=== PATIENT | female | born 1965 | race Caucasian/White ===

== ENCOUNTER 2017-08-18 23:51 | Emergency (ER) | payer OTHER ==
[~2017-08-18] VITALS: Ht 162.6 cm; Wt 99.4 kg
[~2017-08-18 23:51] MED LIST: ALBUAER3 INH; HYDR25TA5 PO; METO100T PO; OMEP20TA93 PO; PRED50 PO; PROM25TA5 PO; PROZ20CA11 PO
[2017-08-19] VITALS (7 sets, daily range): BP systolic 143–214; BP diastolic 78–126; PULSE 58–70; RESP 12–20; TEMP 97.1; O2SAT 98–99
--- NOTE | 2017-08-19 01:24 | PD ---
HPI Chief Complaint: Hypertension Time Seen by Provider: 01:22 Travel History International Travel<30 days: No Contact w/Intl Traveler<30days: No Traveled to known affect area: No History of Present Illness HPI The patient is a 52-year-old female that states her blood pressure is been elevated all day. She took a 0.1 mg of clonidine and this did not help. She has been taking her regular medications correctly which includes metoprolol 100 mg by mouth twice daily. She does have a headache of gradual onset all day and states her organs feel painful. She states her liver and kidneys feel painful when she gets an elevated blood pressure. Her medical problems include COPD, hypertension and anxiety. PFSH Past Medical History Anxiety: Yes Depression: Yes COPD: Yes Diminished Hearing: No GERD: Yes Hypertension: Yes Respiratory: Yes (COPD) Tetanus Vaccination: Unknown Influenza Vaccination: No ?: Not : 4 Para: 3 Miscarriage: 1 Past Surgical History Abdominal Surgery: Yes (LAPAROSOPY X3 ) Hysterectomy: Yes Other Surgery: Yes (CYST REMOVAL LEFT CHEEK) Social History Alcohol Use: No Tobacco Use: No (QUIT 2009) Substance Use: No Allergies-Medications (Allergen,Severity, Reaction): Coded Allergies: No Known Allergies (Unverified , 02/05/16) Reported Meds & Prescriptions Reported Meds & Active Scripts Active Phenergan (Promethazine HCl) 25 Mg Tab 25 Mg PO Q6H PRN Hydrochlorothiazide 25 Mg Tab 25 Mg PO DAILY Metoprolol Tartrate 100 Mg Tab 100 Mg PO BID Proair Hfa 8.5 GM Inh (Albuterol Sulfate) 90 Mcg/Act Aer 2 Puff INH Q4-6H PRN 108 mcg/actuation Prednisone 50 Mg Tab 50 Mg PO BID PRN Reported Omeprazole 20 Mg Tab 20 Mg PO DAILY Metoprolol Tartrate 100 Mg Tab 100 Mg PO BID Hydrochlorothiazide 25 Mg Tab 25 Mg PO DAILY Prozac (Fluoxetine HCl) 20 Mg Cap 20 Mg PO DAILY Review of Systems Except as stated in HPI: all other systems reviewed are Neg Physical Exam Narrative GENERAL: The patient is alert, oriented 3 in no apparent distress except for headache and anxiety. SKIN: Focused skin assessment warm/dry. HEAD: Atraumatic. Normocephalic. EYES: Pupils equal and round. No scleral icterus. No injection or drainage. ENT: No nasal bleeding or discharge. Mucous membranes pink and moist. NECK: Trachea midline. No JVD. CARDIOVASCULAR: Regular rate and rhythm. No murmur appreciated. RESPIRATORY: No accessory muscle use. Clear to auscultation. Breath sounds equal bilaterally. GASTROINTESTINAL: Abdomen soft, non-tender, nondistended. Hepatic and splenic margins not palpable. MUSCULOSKELETAL: No obvious deformities. No clubbing. No cyanosis. No edema. NEUROLOGICAL: Awake and alert. No obvious cranial nerve deficits. Motor grossly within normal limits. Normal speech. PSYCHIATRIC: Appropriate mood and affect; insight and judgment normal. Data Data Last Documented VS Vital Signs Date Time Temp Pulse Resp B/P (MAP) Pulse Ox O2 Delivery O2 Flow Rate FiO2 08/19/17 02:52 64 20 154/86 (108) 08/19/17 00:42 98 Room Air 08/19/17 00:06 97.1 Orders Orders Hydralazine Inj (Apresoline Inj) (08/19/17 01:30) Lorazepam Inj (Ativan Inj) (08/19/17 01:30) MDM Medical Decision Making Medical Screen Exam Complete: Yes Emergency Medical Condition: Yes Medical Record Reviewed: Yes Differential Diagnosis Hypertension poor control, anxiety related hypertension, noncompliance to medications, hypertensive urgency Narrative Course The patient probably has anxiety related hypertension but she may need an adjustment on her blood pressure medications. The Ativan seemed to help the blood pressure and when the blood pressure came down and the headache resolved. The patient needs to follow-up with her primary care physician. Diagnosis Primary Impression: Hypertension Additional Impressions: Anxiety Headache Additional Instructions: As we discussed, follow-up with your primary care physician next week. He needs to take a look at her blood pressure at that time. Med/Other Pt SpecificInfo: No Change to Meds Disposition: 01 DISCHARGE HOME Condition: Stable Rajesh De La Cruz MD Aug 19, 2017 01:24
[2017-08-19] MEDS ORDERED: LORazepam 2 MG/ML VIAL IV PUSH ONE (01:30)
[2017-08-19] MEDS ORDERED: hydrALAZINE HCL 20 MG/ML VIAL IV PUSH ONE (01:30)
== END 2017-08-19 03:49 | disposition home or self-care (01) ==
LOC: PHED 23:51
DX: I10 Essential (primary) hypertension (principal); F41.9 Anxiety disorder, unspecified; R51 Headache; Z87.891 Personal history of nicotine dependence
CPT/HCPCS: 96374; 96375; 99284; J0360; J2060